=== PATIENT | male | born 1995 | race Caucasian/White ===

== ENCOUNTER 2021-06-17 08:15 | Outpatient (CLI) | payer BC, SELFPAY ==
[2021-06-17 09:14] LABS: Cholesterol 207 mg/dL (0-200); Glucose 98 mg/dL (70-99); HDL Direct 42 mg/dL (40-60); LDL Cholesterol Calculated 144 mg/dL (<130); Triglycerides 105 mg/dL (0-150)
== END 2021-06-17 08:16 | disposition home or self-care (01) ==
LOC: CHSLAB 08:19
PROVIDERS: PCP Family Medicine; Visit Provider Family Medicine
DX: Z00.00 Encounter for general adult medical examination without abnormal findings (principal); Z13.220 Encounter for screening for lipoid disorders
CPT/HCPCS: 36415; 80061; 82947

== ENCOUNTER 2024-11-14 11:33 | Outpatient (CLI) | payer OTHER, SELFPAY ==
--- NOTE | ~2024-11-14 | XR_ITS ---
3 VIEWS THORACIC SPINE Ordering provider: Deonte Sidhu MD History: . LOW BACK PAIN RADIATES DOWN TO KNEES .X2YR . Comparison: None. FINDINGS: VERTEBRAL BODIES: Normal height and alignment. No visible fracture or subluxation. DISK SPACES: Slight narrowing of the disc spaces in the midthoracic area. SOFT TISSUES: Normal. IMPRESSION: No acute osseous abnormality of the thoracic spine. 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
--- NOTE | ~2024-11-14 | XR_ITS ---
3 VIEWS LUMBAR SPINE Ordering provider: Deonte Sidhu MD History: . LOW BACK PAIN RADIATES DOWN TO KNEES .X2YR . Comparison: None. FINDINGS: VERTEBRAL BODIES: No visible fracture or subluxation. DISK SPACES: Normal. SOFT TISSUES: Normal. IMPRESSION: No acute osseous abnormality lumbar spine. Reviewed, dictated and finalized at location A. GER GRANT
--- NOTE | ~2024-11-14 | XR_ITS ---
[id number] Ordering provider: Deonte Sidhu MD History: . LOW BACK PAIN RADIATES DOWN TO KNEES .X2YR . Comparison: None. FINDINGS: VERTEBRAL BODIES: Normal height and alignment. No visible fracture or subluxation. The dens is intact . DISK SPACES: Well maintained. PARASPINOUS SOFT TISSUES: No prevertebral soft tissue swelling. IMPRESSION: No acute osseous abnormality cervical spine. Reviewed, dictated and finalized at location A. FABRICATING MACHINE TENDER
== END 2024-11-14 11:34 | disposition home or self-care (01) ==
PROVIDERS: PCP Family Medicine; Visit Provider Family Medicine
DX: M54.2 Cervicalgia (principal); M54.50 Low back pain, unspecified
CPT/HCPCS: 72040; 72072; 72100

== ENCOUNTER 2024-11-23 07:00 | Outpatient (CLI) | payer OTHER, SELFPAY ==
--- NOTE | ~2024-11-23 | MR_ITS ---
MRI of the lumbar spine Clinical History: Back pain Technique: Axial T2-weighted images, and sagittal T1-weighted, T2-weighted, and T2 fat-sat images wer e acquired. Findings: There is no fracture or subluxation of lumbar spine. Vertebral bodies maintain normal heigh t and alignment. No bone marrow signal abnormality seen. No disc bulge or herniation seen at any lumbar level. There are minimal facet joint degenerative farmer ges. No spinal canal stenosis or neural foraminal narrowing seen at any lumbar level. Paravertebral soft tissues are unremarkable. Impression: Minimal facet joint degenerative change. Reviewed, dictated and finalized at location . Impression: Minimal facet joint degenerative change.
== END 2024-11-23 07:01 | disposition home or self-care (01) ==
LOC: CHSIMG 07:01
PROVIDERS: PCP Family Medicine; Visit Provider Family Medicine
DX: M54.50 Low back pain, unspecified (principal)
CPT/HCPCS: 72148